=== PATIENT | male | born 1965 | race Caucasian/White ===

== ENCOUNTER 2020-09-26 07:51 | Emergency (ER) | payer OTHER ==
[~2020-09-26] VITALS: Ht 175.3 cm; Wt 81.7 kg
[2020-09-26] MEDS ORDERED: CELEXA 10 MG TA10 M1 PO (08:04)
[2020-09-26 08:45] LABS: ABSOLUTE BASOPHILS 0.1 thou/uL (0.0-0.2); ABSOLUTE EOSINOPHILS 0.2 thou/uL (0.0-0.7); ABSOLUTE LYMPHOCYTES 1.7 thou/uL (0.8-5.3); ABSOLUTE MONOCYTES 0.7 thou/uL (0.0-1.2); ABSOLUTE NEUTROPHILS 6.5 thou/uL (1.6-8.1); BASOPHILS 0.6 %; EOSINOPHILS 1.9 %; HEMATOCRIT 40.6 % (42.0-52.0); HEMOGLOBIN 14.2 gm/dL (14.0-18.0); LYMPHOCYTES 18.4 %; MCH 28.6 pg (26.0-34.0); MCHC 34.9 g/dL (28.0-37.0); MCV 81.8 fL (80.0-100.0); MONOCYTES 7.8 %; MPV 7.4 fl. (7.2-11.1); NUCLEATED RBCS 0 /100WBC; PLATELET COUNT* 170 thou/uL (150-400); POLYS 71.3 %; RBC 4.97 mil/uL (4.50-6.00); RDW-CV 12.7 % (10.5-14.5); WBC 9.2 thou/uL (4.0-11.0)
[2020-09-26 08:52] LABS: CREATININE 0.9 mg/dL (0.6-1.3); POTASSIUM 4.2 mmol/L (3.5-5.1)
[2020-09-26] MEDS ORDERED: CEPHALEXIN500 MG PO (09:26)
[2020-09-26 09:41] VITALS: BP 126/68
== END 2020-09-26 09:46 | disposition home or self-care (01) ==
LOC: M.ERS 07:51
PROVIDERS: Emergency Medicine Emergency Medical Services
DX: M65.842 Other synovitis and tenosynovitis, left hand (principal); E03.9 Hypothyroidism, unspecified